=== PATIENT | female | born 1960 | race Caucasian/White ===

== ENCOUNTER 2025-06-04 23:56 | Inpatient (IN) | payer MEDICARE ==
[~2025-06-04] VITALS: Ht 157.5 cm; Wt 72.6 kg
[2025-06-05] VITALS (8 sets, daily range): BP systolic 114–182; BP diastolic 63–116; TEMP 97.2–98.4; O2SAT 94–98
[2025-06-05 01:19] LABS: PLATELET COUNT (AUTO) 313 K/uL (179-408); RED BLOOD CELL COUNT(AUTO) 4.94 MIL/uL (3.63-4.92); RED CELL DISTRIBUTION WIDTH 13.7 % (12.3-17.7); WHITE BLOOD COUNT (AUTO) 10.1 K/uL (3.8-11.8)
[2025-06-05 01:37] LABS: ETHANOL < 3 MG/DL (0-10)
[2025-06-05 01:38] LABS: CREATININE 0.7 mg/dL (0.6-1.3); SODIUM SERUM 138 mmol/L (136-145); UREA NITROGEN, BLOOD 38 mg/dL (7-18)
[2025-06-05 01:43] LABS: ASPARTATE AMINOTRANSFERASE 25 U/L (15-37); TOTAL PROTEIN, SERUM 6.1 g/dL (6.4-8.2)
[2025-06-05 01:57] LABS: *BILIRUBIN,URIN NEGATIVE (NEGATIVE); *BLOOD, URINE NEGATIVE (NEGATIVE); *CLARITY,URINE CLEAR (CLEAR); *COLOR,URINE YELLOW (YELLOW); *KETONES,URINE NEGATIVE (NEGATIVE); *PROTEIN,URINE NEGATIVE (NEGATIVE); *UROBILINOGEN,URINE 0.2 E.U./dl (NORMAL); LEUKOCYTE ESTERASE ,URINE NEGATIVE (NEGATIVE); NITRITE, URINE NEGATIVE (NEGATIVE); UGLUCOSE NEGATIVE (NEGATIVE)
[2025-06-05 02:09] LABS: *AMPHETAMINE, URINE NEGATIVE (NEGATIVE); *BARBITURATE, URINE NEGATIVE (NEGATIVE); *BENZODIAZEPINE, URINE NEGATIVE (NEGATIVE); *CANNABINOID, URINE POSITIVE (NEGATIVE); *COCCAINE, URINE NEGATIVE (NEGATIVE); *OPIATE, URINE NEGATIVE (NEGATIVE); *PHENCYCLIDINE SCREEN,URINE NEGATIVE (NEGATIVE); FENTANYL, URINE NEGATIVE (NEGATIVE)
[2025-06-05] MEDS ORDERED: DILT240T12 PO (03:41)
[2025-06-05] MEDS ORDERED: LORA-259 PO (03:41)
[2025-06-05] MEDS ORDERED: ZOLP10TA2 PO (03:41)
[2025-06-05] MEDS ORDERED: TRAM50TA2 PO (03:41)
[2025-06-05] MEDS ORDERED: ZOLPIDEM 5 MG TABLET PO PRN (05:15)
[2025-06-05] MEDS ORDERED: MAGNESIUM HYDROXIDE 30 ML LIQUID UDC PO PRN (05:15)
[2025-06-05] MEDS: TRAMADOL HCL 50 MG TABLET PO SCH (09:15)
[2025-06-05] MEDS: DIVALPROEX 125 MG TABLET.DR PO SCH (13:49)
[2025-06-05] MEDS: NICOTINE 21 MG/24HR PATCH TD SCH (13:55)
[2025-06-05] MEDS: ACETAMINOPHEN 325 MG TABLET PO PRN (22:44)
[2025-06-05] MEDS: METOPROLOL TARTRATE 25 MG TABLET PO SCH (22:45)
[2025-06-06 07:48] LABS: ASPARTATE AMINOTRANSFERASE 17.0 U/L (15-37); CREATININE 0.7 mg/dL (0.6-1.3); SODIUM SERUM 141.0 mmol/L (136-145); TOTAL PROTEIN, SERUM 6.3 g/dL (6.4-8.2); UREA NITROGEN, BLOOD 22.0 mg/dL (7-18)
[2025-06-06 08:28] VITALS: BP 156/103; TEMP 97.4; O2SAT 97
[2025-06-06] MEDS ORDERED: DILTIAZEM HCL 240 MG PO SCH (09:00)
[2025-06-06 17:33] VITALS: BP 146/102; TEMP 98.1; O2SAT 100
[2025-06-06 19:52] VITALS: BP 143/62; TEMP 98.1; O2SAT 96
[2025-06-07 08:04] VITALS: BP 145/101; TEMP 98.7; O2SAT 95
[2025-06-07] MEDS: AMLODIPINE 5 MG TABLET PO SCH (09:11)
[2025-06-07] MEDS: DIVALPROEX 250 MG TABLET.DR PO SCH (13:44)
[2025-06-07] MEDS ORDERED: DIVALPROEX 125 MG TABLET.DR PO SCH (14:00)
[2025-06-07 16:14] VITALS: BP 148/93; TEMP 97.4; O2SAT 97
[2025-06-07 20:06] VITALS: BP 142/71; TEMP 98.1; O2SAT 96
[2025-06-07] MEDS: ZOLPIDEM 5 MG TABLET PO PRN (23:02)
[2025-06-08 09:21] VITALS: BP 138/87; TEMP 98.2; O2SAT 96
[2025-06-08 16:40] VITALS: BP 147/76; TEMP 97.6; O2SAT 95
[2025-06-08 20:00] VITALS: BP 126/78; TEMP 98; O2SAT 95
[2025-06-09 08:31] VITALS: BP 119/88; TEMP 98; O2SAT 94
[2025-06-09 15:11] VITALS: BP 115/62; TEMP 98; O2SAT 96
[2025-06-09 19:51] VITALS: BP 124/64; TEMP 97.9; O2SAT 96
[2025-06-09] MEDS: LORAZEPAM 0.5 MG TABLET PO ONE (22:19)
[2025-06-10 08:14] VITALS: BP 167/91; TEMP 98; O2SAT 96
[2025-06-10 16:35] VITALS: BP 142/67; TEMP 98; O2SAT 96
[2025-06-10 20:00] VITALS: BP 142/79; TEMP 98.1; O2SAT 92
[2025-06-10] MEDS ORDERED: TRAZODONE 50 MG TABLET GT SCH (21:00)
[2025-06-11 08:00] VITALS: BP 149/92; TEMP 98.2; O2SAT 95
[2025-06-11] MEDS: PALIPERIDONE PALMITATE 234 MG/1.5 ML SYRINGE IM ONE (12:03)
[2025-06-11 16:12] VITALS: BP 130/73; TEMP 98.5; O2SAT 95
[2025-06-11 19:44] VITALS: BP 124/78; TEMP 98.1; O2SAT 95
[2025-06-11] MEDS: TRAZODONE 50 MG TABLET GT SCH (20:27)
[2025-06-12] MEDS: ALBUTEROL SULFATE 2.5 MG/ 0.5 ML NEBU NEB PRN (00:18)
[2025-06-12] MEDS ORDERED: ALBUTEROL SULFATE 2.5 MG/ 0.5 ML NEBU ONE (00:23)
[2025-06-12 07:33] VITALS: BP 149/81; TEMP 97.6; O2SAT 98
[2025-06-12] MEDS ORDERED: FLUTICASONE/SALMETEROL 250/50 INHALER INH SCH (09:30)
[2025-06-12] MEDS: MOMETASONE/FORMOTEROL 8.8 GM HFA.AER.AD IH SCH (11:07)
[2025-06-12 16:00] VITALS: BP 119/69; TEMP 97.8; O2SAT 98
[2025-06-12 20:00] VITALS: BP 116/59; TEMP 98; O2SAT 92
[2025-06-12] MEDS: TRAZODONE 50 MG TABLET PO SCH (21:05)
[2025-06-13 08:55] VITALS: BP 140/83; TEMP 98; O2SAT 94
[2025-06-13 13:44] VITALS: O2SAT 95
[2025-06-13] MEDS ORDERED: DIVALPROEX 250 MG TABLET.DR PO SCH (14:00)
[2025-06-13] MEDS: DIVALPROEX 500 MG TABLET.DR PO SCH (14:19)
[2025-06-13 14:34] VITALS: O2SAT 97
[2025-06-13] MEDS: IPRATROPIUM BROMIDE 0.5 MG/2.5 ML NEBU NEB PRN (14:34)
[2025-06-13] MEDS: ALBUTEROL SULFATE 2.5 MG/ 0.5 ML NEBU NEB PRN (14:34)
[2025-06-13 16:42] VITALS: BP 145/70; TEMP 97.8; O2SAT 95
[2025-06-13 20:00] VITALS: BP 142/76; TEMP 98.1; O2SAT 95
[2025-06-13] MEDS: DIVALPROEX 250 MG TABLET.DR PO SCH (20:38)
[2025-06-13] MEDS ORDERED: DIVALPROEX 125 MG TABLET.DR PO SCH (21:00)
[2025-06-14] VITALS (7 sets, daily range): BP systolic 131–151; BP diastolic 51–85; TEMP 98–99.5; O2SAT 89–99
[2025-06-14] MEDS: MAG HYDROX/AL HYDROX/SIMETH 30 ML LIQUID UDC PO PRN (14:41)
[2025-06-14] MEDS: ONDANSETRON HCL 4 MG TABLET PO PRN (15:01)
[2025-06-14 23:04] LABS: *BILIRUBIN,URIN NEGATIVE (NEGATIVE); *BLOOD, URINE NEGATIVE (NEGATIVE); *CLARITY,URINE CLEAR (CLEAR); *COLOR,URINE YELLOW (YELLOW); *PROTEIN,URINE NEGATIVE (NEGATIVE); *UROBILINOGEN,URINE 0.2 E.U./dl (NORMAL); LEUKOCYTE ESTERASE ,URINE NEGATIVE (NEGATIVE); NITRITE, URINE NEGATIVE (NEGATIVE); UGLUCOSE NEGATIVE (NEGATIVE)
[2025-06-14 23:13] LABS: *KETONES,URINE NEGATIVE (NEGATIVE)
[2025-06-15 05:13] VITALS: O2SAT 92
[2025-06-15 05:23] VITALS: O2SAT 96
[2025-06-15 07:29] LABS: PLATELET COUNT (AUTO) 199 K/uL (179-408); RED BLOOD CELL COUNT(AUTO) 4.17 MIL/uL (3.63-4.92); RED CELL DISTRIBUTION WIDTH 14.1 % (12.3-17.7); WHITE BLOOD COUNT (AUTO) 5.2 K/uL (3.8-11.8)
[2025-06-15 07:52] LABS: ASPARTATE AMINOTRANSFERASE 13.0 U/L (15-37); CREATININE 0.7 mg/dL (0.6-1.3); SODIUM SERUM 136.0 mmol/L (136-145); TOTAL PROTEIN, SERUM 5.9 g/dL (6.4-8.2); UREA NITROGEN, BLOOD 16.0 mg/dL (7-18)
[2025-06-15 07:58] VITALS: BP 112/73; TEMP 98.7; O2SAT 95
[2025-06-15 08:19] VITALS: BP 111/68
[2025-06-15] MEDS: FUROSEMIDE 40 MG TABLET PO SCH (08:19)
[2025-06-15] MEDS ORDERED: IPRATROPIUM BROMIDE 0.5 MG/2.5 ML NEBU NEB PRN (09:15)
[2025-06-15 10:31] LABS: ABG BASE EXCESS 4.8 mmol/L (-2.0-3.0); ABG HCO3 30.7 mmol/L (21.0-28.0); ABG PCO2 50.4 mmHg (32.0-45.0); ABG PH 7.402 (7.350-7.450); ABG PO2 47.9 mmHg (83.0-108.0); ABG SITE RIGHT RADIAL; ABG TOTAL HEMOGLOBIN 13.6 G/dL (12.0-16.0); AaDO2 83.3 mmHg; FIO2 21.0 %
[2025-06-15] MEDS ORDERED: IPRA0.2S48 NEB (12:39)
[2025-06-15] MEDS ORDERED: NICO1PAT35 TD (12:39)
[2025-06-15] MEDS ORDERED: ALBU2.5V7 IH (12:39)
[2025-06-15] MEDS ORDERED: FURO40TA5 PO (12:39)
[2025-06-15] MEDS ORDERED: TRAZ-182 PO (12:39)
[2025-06-15] MEDS ORDERED: MOME13HF2 IH (12:39)
[2025-06-15] MEDS ORDERED: DIVA250T4 PO (12:39)
[2025-06-15] MEDS ORDERED: MAG355OR18 PO (12:39)
[2025-06-15] MEDS ORDERED: METO25TA6 PO (12:39)
[2025-06-15] MEDS ORDERED: MAGN400O6 PO (12:39)
[2025-06-15] MEDS ORDERED: DIVA500T2 PO (12:39)
[2025-06-15] MEDS ORDERED: ACET-2154 PO (12:39)
[2025-06-15] MEDS ORDERED: ZOLP5TAB2 PO (12:39)
[2025-06-15] MEDS ORDERED: AMLO5TAB4 PO (12:39)
[2025-06-15] MEDS ORDERED: TRAM50TA PO (12:39)
[2025-06-15] MEDS ORDERED: RISP2TAB5 PO ×2 (12:39)
[2025-06-15] MEDS ORDERED: RISP0.5T5 PO (12:39)
[2025-06-15] MEDS ORDERED: ONDA4TAB5 PO (12:40)
== END 2025-06-15 12:40 | disposition short-term general hospital (02) | DRG 885 ==
LOC: ER 06-05 00:15 → GPS 06-05 03:37
PROVIDERS: ADMIT Psychiatry & Neurology Psychiatry; ATTEND Internal Medicine
DX: F29 Unspecified psychosis not due to a substance or known physiological condition (principal); J44.89 Other specified chronic obstructive pulmonary disease; Z59.01 Sheltered homelessness; R45.851 Suicidal ideations; F25.9 Schizoaffective disorder, unspecified; F31.9 Bipolar disorder, unspecified; Z91.51 Personal history of suicidal behavior; F17.210 Nicotine dependence, cigarettes, uncomplicated; I10 Essential (primary) hypertension; Z86.73 Personal history of transient ischemic attack (TIA), and cerebral infarction without residual deficits; F19.21 Other psychoactive substance dependence, in remission
CPT/HCPCS: 36415; 36600; 71045; 80164; 85025; 87086; 93005; 94640; 94760; G0480; J2426; J3490; J3590; Q0162

== ENCOUNTER 2025-06-15 11:59 | Inpatient (IN) | payer MEDICARE, OTHER ==
[2025-06-15] VITALS (7 sets, daily range): BP systolic 109–148; BP diastolic 57–83; TEMP 98.9–100.2; O2SAT 92–100
[~2025-06-15] VITALS: Ht 157.5 cm; Wt 83.5 kg
[2025-06-15] MEDS ORDERED: DIVA500T2 PO (12:39)
[2025-06-15] MEDS ORDERED: ZOLP5TAB2 PO (12:39)
[2025-06-15] MEDS ORDERED: FURO40TA5 PO (12:39)
[2025-06-15] MEDS ORDERED: DIVA250T4 PO (12:39)
[2025-06-15] MEDS ORDERED: IPRA0.2S48 NEB (12:39)
[2025-06-15] MEDS ORDERED: AMLO5TAB4 PO (12:39)
[2025-06-15] MEDS ORDERED: TRAM50TA PO (12:39)
[2025-06-15] MEDS ORDERED: ACET-2154 PO (12:39)
[2025-06-15] MEDS ORDERED: RISP2TAB5 PO ×2 (12:39)
[2025-06-15] MEDS ORDERED: RISP0.5T5 PO (12:39)
[2025-06-15] MEDS ORDERED: MAGN400O6 PO (12:39)
[2025-06-15] MEDS ORDERED: MAG355OR18 PO (12:39)
[2025-06-15] MEDS ORDERED: TRAZ-182 PO (12:39)
[2025-06-15] MEDS ORDERED: METO25TA6 PO (12:39)
[2025-06-15] MEDS ORDERED: NICO1PAT35 TD (12:39)
[2025-06-15] MEDS ORDERED: ALBU2.5V7 IH (12:39)
[2025-06-15] MEDS ORDERED: MOME13HF2 IH (12:39)
[2025-06-15] MEDS ORDERED: ONDA4TAB5 PO (12:40)
[2025-06-15] MEDS ORDERED: REMEDY ESSENTIAL ZINC PASTE 113 GM TP PRN (13:00)
[2025-06-15] MEDS ORDERED: MAGNESIUM HYDROXIDE 30 ML LIQUID UDC PO PRN (13:00)
[2025-06-15] MEDS ORDERED: ONDANSETRON 4 MG/2 ML VIAL IV PRN (13:00)
[2025-06-15] MEDS: ENOXAPARIN SODIUM 40 MG/0.4 ML DISP.SYRIN SQ SCH (13:22)
[2025-06-15] MEDS: ALBUTEROL SULFATE 2.5 MG/ 0.5 ML NEBU NEB PRN (14:38)
[2025-06-15] MEDS: IPRATROPIUM BROMIDE 0.5 MG/2.5 ML NEBU NEB PRN (14:38)
[2025-06-15] MEDS: ACETAMINOPHEN 325 MG TABLET PO PRN (15:15)
[2025-06-15] MEDS ORDERED: NICOTINE 21 MG/24HR PATCH TD SCH (15:45)
[2025-06-15] MEDS: FUROSEMIDE 40 MG/4 ML VIAL IV ONE (15:58)
[2025-06-15] MEDS: TRAMADOL HCL 50 MG TABLET PO SCH (17:18)
[2025-06-15] MEDS: TRAZODONE 50 MG TABLET PO SCH (20:31)
[2025-06-15] MEDS: METOPROLOL TARTRATE 25 MG TABLET PO SCH (20:32)
[2025-06-15] MEDS: DIVALPROEX 250 MG TABLET.DR PO SCH (20:32)
[2025-06-15] MEDS: MOMETASONE/FORMOTEROL 8.8 GM HFA.AER.AD IH SCH (20:41)
[2025-06-15] MEDS: CEFEPIME HCL 2 GM in IV DEXTROSE 5% 100 ML IV SCH (21:23)
[2025-06-16] VITALS (12 sets, daily range): BP systolic 103–141; BP diastolic 60–87; TEMP 97.4–99.3; O2SAT 92–99
[2025-06-16 07:40] LABS: PLATELET COUNT (AUTO) 180 K/uL (179-408); RED BLOOD CELL COUNT(AUTO) 4.17 MIL/uL (3.63-4.92); RED CELL DISTRIBUTION WIDTH 14.1 % (12.3-17.7); WHITE BLOOD COUNT (AUTO) 4.6 K/uL (3.8-11.8)
[2025-06-16 08:00] LABS: CREATININE 0.6 mg/dL (0.6-1.3); SODIUM SERUM 136.0 mmol/L (136-145); UREA NITROGEN, BLOOD 22.0 mg/dL (7-18)
[2025-06-16] MEDS: FUROSEMIDE 40 MG/4 ML VIAL IV SCH (08:58)
[2025-06-16] MEDS: DIVALPROEX 500 MG TABLET.DR PO SCH (08:59)
[2025-06-16] MEDS: AMLODIPINE 5 MG TABLET PO SCH (09:00)
[2025-06-16] MEDS ORDERED: NICOTINE 21 MG/24HR PATCH TD SCH (09:00)
[2025-06-16] MEDS: NICOTINE 21 MG/24HR PATCH TD SCH (09:12)
[2025-06-16] MEDS: ALBUTEROL SULFATE 2.5 MG/3 ML NEBU NEB SCH (14:03)
[2025-06-16] MEDS: IPRATROPIUM BROMIDE 0.5 MG/2.5 ML NEBU NEB SCH (14:03)
[2025-06-17] VITALS (10 sets, daily range): BP systolic 128–155; BP diastolic 73–91; TEMP 97.8–98.5; O2SAT 93–99
[2025-06-17] MEDS: ZOLPIDEM 5 MG TABLET PO PRN (02:28)
[2025-06-17 06:56] LABS: PLATELET COUNT (AUTO) 198 K/uL (179-408); RED BLOOD CELL COUNT(AUTO) 4.65 MIL/uL (3.63-4.92); RED CELL DISTRIBUTION WIDTH 13.9 % (12.3-17.7); WHITE BLOOD COUNT (AUTO) 7.6 K/uL (3.8-11.8)
[2025-06-17 07:10] LABS: CREATININE 0.6 mg/dL (0.6-1.3); SODIUM SERUM 139.0 mmol/L (136-145); UREA NITROGEN, BLOOD 27.0 mg/dL (7-18)
[2025-06-18] VITALS (12 sets, daily range): BP systolic 127–151; BP diastolic 67–85; TEMP 97.6–98.7; O2SAT 92–99
[2025-06-18] MEDS: PALIPERIDONE PALMITATE 156 MG/ML SYRINGE IM ONE (12:28)
[2025-06-19] VITALS (10 sets, daily range): BP systolic 119–137; BP diastolic 66–79; TEMP 92–98.5; O2SAT 92–99
[2025-06-19 07:11] LABS: PLATELET COUNT (AUTO) 220 K/uL (179-408); RED BLOOD CELL COUNT(AUTO) 4.44 MIL/uL (3.63-4.92); RED CELL DISTRIBUTION WIDTH 13.8 % (12.3-17.7); WHITE BLOOD COUNT (AUTO) 7.2 K/uL (3.8-11.8)
[2025-06-19 07:39] LABS: CREATININE 0.6 mg/dL (0.6-1.3); SODIUM SERUM 136.0 mmol/L (136-145); UREA NITROGEN, BLOOD 29.0 mg/dL (7-18); VALPROIC ACID 54.0 ug/mL (50-100)
[2025-06-20 06:47] VITALS: BP 142/95; TEMP 98.6; O2SAT 91
[2025-06-20 07:27] LABS: PLATELET COUNT (AUTO) 214 K/uL (179-408); RED BLOOD CELL COUNT(AUTO) 4.47 MIL/uL (3.63-4.92); RED CELL DISTRIBUTION WIDTH 14.2 % (12.3-17.7); WHITE BLOOD COUNT (AUTO) 5.9 K/uL (3.8-11.8)
[2025-06-20 07:34] VITALS: O2SAT 95
[2025-06-20 07:38] LABS: CREATININE 0.6 mg/dL (0.6-1.3); SODIUM SERUM 138.0 mmol/L (136-145); UREA NITROGEN, BLOOD 26.0 mg/dL (7-18)
[2025-06-20 07:49] VITALS: O2SAT 99
[2025-06-20 08:13] VITALS: BP 150/93; TEMP 98; O2SAT 94
[2025-06-20 08:53] LABS: LYMPHOCYTES % (MANUAL) 16 % (20-40); MONOCYTES % (MANUAL) 15 % (2-10); MYELOCYTES % 2 % (0-0); NEUTROPHILS % (MANUAL) 67 % (42-75); PLATELET ESTIMATE ADEQUATE
[2025-06-20 09:30] VITALS: BP 134/88; O2SAT 95
[2025-06-20 10:57] VITALS: BP 133/74; TEMP 97.6; O2SAT 94
[2025-06-20] MEDS ORDERED: PRED20TA PO (11:49)
[2025-06-20] MEDS ORDERED: NICO-780 TD (11:49)
[2025-06-20] MEDS ORDERED: AMOX-430 PO (11:49)
[2025-06-20] MEDS ORDERED: ALBU2.5V7 NEB (11:49)
[2025-06-20] MEDS ORDERED: IPRA0.2S6 NEB ×2 (11:49)
[2025-06-20] MEDS ORDERED: ENOX40DI SQ (11:49)
[2025-06-20] MEDS ORDERED: ALBU2.5V13 NEB (11:49)
[2025-06-20] MEDS ORDERED: DIVALPROEX 500 MG TABLET.DR PO SCH (14:00)
== END 2025-06-20 13:30 | DRG 177 ==
LOC: MEDSURG3 11:59 → TELE3 12:53 → MEDSURG3 06-18 11:20
PROVIDERS: ADMIT Internal Medicine; ATTEND Internal Medicine
DX: J15.69 Pneumonia due to other Gram-negative bacteria (principal); I50.31 Acute diastolic (congestive) heart failure; J96.01 Acute respiratory failure with hypoxia; J96.02 Acute respiratory failure with hypercapnia; J45.901 Unspecified asthma with (acute) exacerbation; I11.0 Hypertensive heart disease with heart failure; F25.9 Schizoaffective disorder, unspecified; K44.9 Diaphragmatic hernia without obstruction or gangrene; J44.0 Chronic obstructive pulmonary disease with (acute) lower respiratory infection; C73 Malignant neoplasm of thyroid gland; E66.9 Obesity, unspecified; F19.21 Other psychoactive substance dependence, in remission; J44.1 Chronic obstructive pulmonary disease with (acute) exacerbation; Z59.00 Homelessness unspecified; J98.11 Atelectasis; F31.9 Bipolar disorder, unspecified; Z68.33 Body mass index [BMI] 33.0-33.9, adult; Z91.148 Patient's other noncompliance with medication regimen for other reason; F17.210 Nicotine dependence, cigarettes, uncomplicated; Z88.8 Allergy status to other drugs, medicaments and biological substances; Z91.51 Personal history of suicidal behavior; F14.90 Cocaine use, unspecified, uncomplicated; F11.90 Opioid use, unspecified, uncomplicated; F15.90 Other stimulant use, unspecified, uncomplicated; F60.3 Borderline personality disorder; Z62.810 Personal history of physical and sexual abuse in childhood
CPT/HCPCS: 36415; 70030-TC; 71045; 71250; 80164; 82785; 83690; 83735; 84100; 84443; 85025; 86140; 93307; 94640; 94664; 94760; G0378; J0692; J1650; J1938; J2426; J2919; J3490; J3590